=== PATIENT | female | born 1990 | race Caucasian/White ===

== ENCOUNTER 2023-12-27 02:20 | Inpatient (IN) | payer OTHER, BC ==
[~2023-12-27] VITALS: Ht 182.9 cm; Wt 88.5 kg
[2023-12-27 02:22] VITALS: BP_SYST 91; PULSE 108; RESP 16; TEMP 96.5; O2SAT 99
[2023-12-27] MEDS ORDERED: VANCOMYCIN HCL 1000 MG/VIAL IV ONE (04:46)
[2023-12-27] MEDS: NACL 0.9% 2,000 ML IV ONE (04:48)
[2023-12-27 04:54] LABS: BASOPHILS % (AUTO) 0.3 % (0.0-2.0); EOSINOPHILS # (AUTO) 0.1 K/uL (0.0-0.4); HEMOGLOBIN 11.4 g/dL (12.0-16.0); LYMPHOCYTES # (AUTO) 2.4 K/uL (1.0-5.5); LYMPHOCYTES % (AUTO) 20.2 % (20.5-51.5); MEAN CORPUSCULAR HEMOGLOBIN 29 pg (27-31); MEAN CORPUSCULAR HGB CONC 33 % (32-36); MEAN CORPUSCULAR VOLUME 87 fL (79.0-98.0); MONOCYTES # (AUTO) 1.3 K/uL (0.0-1.0); MONOCYTES % (AUTO) 11.1 % (1.7-9.3); NEUTROPHILS # (AUTO) 7.9 K/uL (1.8-7.7); NEUTROPHILS % (AUTO) 67.4 % (40.0-70.0); PLATELET COUNT (AUTO) 378 K/uL (130-430); RED BLOOD CELL COUNT(AUTO) 3.91 MIL/uL (4.2-6.2); RED CELL DISTRIBUTION WIDTH 13.7 % (9.0-15.0); WHITE BLOOD COUNT (AUTO) 11.7 K/uL (4.8-10.8)
[2023-12-27 04:58] LABS: ERYTHROCYTE SEDIMENTATION RATE 55 MM/HR (0-20)
[2023-12-27] MEDS: MORPHINE 4 MG INJ. 4 MG/ML VIAL IVP ONE (05:12)
[2023-12-27] MEDS: ONDANSETRON HCL 4 MG/2 ML VIAL IVP ONE (05:13)
[2023-12-27] MEDS: VANCOMYCIN HCL 1,000 MG in NS 250 ML IV ONE (05:14)
[2023-12-27 05:49] LABS: CALCIUM 8.9 mg/dL (8.4-11.0); CREATININE 0.75 mg/dL (0.55-1.30); POTASSIUM 3.1 mmol/L (3.5-5.1)
[2023-12-27] MEDS ORDERED: DEXTROSE 50% JECT 50 ML DISP.SYRIN IVP PRN (06:30)
[2023-12-27] MEDS ORDERED: DOCUSATE SODIUM 100 MG CAPSULE PO PRN (06:30)
[2023-12-27] MEDS ORDERED: MORPHINE 2 MG/ML INJ. SYRINGE IVP PRN (06:30)
[2023-12-27] MEDS ORDERED: ZOLPIDEM TARTRATE 5 MG TABLET PO PRN (06:30)
[2023-12-27] MEDS ORDERED: ONDANSETRON HCL 4 MG/2 ML VIAL IVP PRN (06:30)
[2023-12-27] MEDS ORDERED: ACETAMINOPHEN 325 MG TABLET PO PRN (06:30)
[2023-12-27] MEDS ORDERED: INSULIN LISPRO SLIDING SCALE 100 UNITS/ML, 3 ML VIAL (humaLOG) SUBCUT PRN (06:30)
[2023-12-27] MEDS ORDERED: MUPIROCIN 2% TOPICAL OINTMENT 22 GM NS PRN (06:30)
[2023-12-27] MEDS ORDERED: MAGNESIUM SULFATE 50 ML IV PRN (06:30)
[2023-12-27] MEDS ORDERED: POTASSIUM CHLORIDE 20 MEQ TABLET.ER PO PRN (06:30)
[2023-12-27] MEDS ORDERED: ESCI20TA PO (06:56)
[2023-12-27] MEDS ORDERED: DEXT20TA6 PO (06:56)
[2023-12-27] MEDS ORDERED: LURA80TA2 PO (06:56)
[2023-12-27] MEDS ORDERED: ALPR0.5T PO (06:56)
[2023-12-27] MEDS: ceFAZolin SODIUM 1 GM in D5W 50 ML IV ONE (08:45)
[2023-12-27] MEDS: MORPHINE 2 MG/ML INJ. SYRINGE IVP PRN (18:04)
[2023-12-27] MEDS ORDERED: ESCITALOPRAM OXALATE 10 MG TABLET PO SCH (21:00)
[2023-12-27] MEDS ORDERED: LURASIDONE HCL 80 MG PO SCH (21:00)
[2023-12-27 21:35] VITALS: BP_SYST 108; PULSE 92; RESP 18; TEMP 95.9
[2023-12-27 21:40] VITALS: O2SAT 96
[2023-12-28] MEDS: CITALOPRAM HYDROBROMIDE 20 MG TABLET PO SCH (00:18)
[2023-12-28] MEDS ORDERED: ceFAZolin SODIUM 1 GM VIAL ONE (01:26)
[2023-12-28] MEDS: VANCOMYCIN HCL 1.25 GM/NS 250 ML IV SCH (02:17)
[2023-12-28] MEDS: VANCOMYCIN HCL 1.25 GM/NS 250 ML IV ONE (02:19)
[2023-12-28] MEDS: ceFAZolin SODIUM 1 GM in D5W 50 ML IV SCH (02:21)
[2023-12-28 05:45] LABS: BASOPHILS % (AUTO) 0.3 % (0.0-2.0); EOSINOPHILS # (AUTO) 0.2 K/uL (0.0-0.4); EOSINOPHILS % (AUTO) 2.5 % (0.0-4.0); HEMOGLOBIN 10.1 g/dL (12.0-16.0); LYMPHOCYTES # (AUTO) 2.7 K/uL (1.0-5.5); LYMPHOCYTES % (AUTO) 39.6 % (20.5-51.5); MEAN CORPUSCULAR HEMOGLOBIN 30 pg (27-31); MEAN CORPUSCULAR HGB CONC 34 % (32-36); MEAN CORPUSCULAR VOLUME 88 fL (79.0-98.0); MONOCYTES # (AUTO) 0.8 K/uL (0.0-1.0); MONOCYTES % (AUTO) 11.2 % (1.7-9.3); NEUTROPHILS # (AUTO) 3.2 K/uL (1.8-7.7); NEUTROPHILS % (AUTO) 46.4 % (40.0-70.0); PLATELET COUNT (AUTO) 364 K/uL (130-430); RED CELL DISTRIBUTION WIDTH 13.7 % (9.0-15.0); WHITE BLOOD COUNT (AUTO) 6.8 K/uL (4.8-10.8)
[2023-12-28 06:04] LABS: CALCIUM 8.8 mg/dL (8.4-11.0); CREATININE 0.63 mg/dL (0.55-1.30); POTASSIUM 3.5 mmol/L (3.5-5.1)
[2023-12-28 08:00] VITALS: BP_SYST 122; PULSE 54; RESP 18; TEMP 97.7; O2SAT 95
[2023-12-28] MEDS ORDERED: AMOX-423 PO (08:10)
[2023-12-28 09:30] VITALS: O2SAT 95
[2023-12-28 11:08] VITALS: BP_SYST 118; PULSE 62; RESP 14; TEMP 97.9; O2SAT 96
[2023-12-28 11:52] VITALS: BP_SYST 118; PULSE 62; RESP 14; TEMP 97.9; O2SAT 96
== END 2023-12-28 12:35 | disposition home or self-care (01) | DRG 872 ==
LOC: SED 02:20 → SMU 06:23
PROVIDERS: ADMIT Family Medicine; ATTEND Family Medicine
PROC: BW2G1ZZ Computerized Tomography (CT Scan) of Pelvic Region using Low Osmolar Contrast (ICD-10-PCS; principal; 2023-12-27)
DX: A41.9 Sepsis, unspecified organism (principal); L03.317 Cellulitis of buttock; F31.81 Bipolar II disorder; L02.31 Cutaneous abscess of buttock; E11.9 Type 2 diabetes mellitus without complications; F90.9 Attention-deficit hyperactivity disorder, unspecified type; F41.9 Anxiety disorder, unspecified; Z79.899 Other long term (current) drug therapy; Z88.8 Allergy status to other drugs, medicaments and biological substances
CPT/HCPCS: 36415; 72193; 80048; 82948; 83037; 83605; 83735; 85025; 85651; 87040; 99285; J0690; J2270; J2405; J3370; J7060; Q9967